=== PATIENT | female | born 1985 | race Caucasian/White ===

== ENCOUNTER → 2016-04-15 | Outpatient (CLI) | payer BC ==
[~2016-04-15] MED LIST: CYCL10TA9 PO; IBUP-1773 PO; LORA10TA76 PO; OXYC-471 PO; ROSU5TAB PO
--- NOTE | 2016-04-15 19:59 | Diagnostic Imaging Report ---
OB ultrasound. INDICATION: survey. FINDINGS: heart rate is 140 beats per minute. The placenta is posterior. No placenta previa. survey demonstrates visualization of the stomach, the heart, the bladder, two umbilical arteries, the cord insertion, the kidneys without hydronephrosis or cystic mass, unremarkable appearance of the spine, posterior fossa, and no ventriculomegaly. The growth parameters are all around 19 weeks and 6 days concordant with dating by LMP of 11/27/2015 which would correspond to 20 weeks and 0 days at this time. No first trimester ultrasound is available. IMPRESSION: Live single intrauterine with no definite abnormality in survey seen. Dictated by: Dictated on workstation # [id number]
== END ==
LOC: RAD 11:48
PROVIDERS: ATTEND Obstetrics & Gynecology
DX: Z34.92 Encounter for supervision of normal pregnancy, unspecified, second trimester (principal)
CPT/HCPCS: 76805

== ENCOUNTER 2016-08-29 20:00 | Inpatient (IN) | payer BC, OTHER ==
[2016-08-29] VITALS (7 sets, daily range): BP systolic 112–148; BP diastolic 63–81
[~2016-08-29] VITALS: Ht 162.6 cm; Wt 116.2 kg
--- OUTSIDE RECORDS SUMMARY | 2016-08-29 20:06 | XMS REPORT | Continuity of Care Document ---
Author Author Formerly [facility] Address Unknown Phone Unavailable Allergies Active Description Code Type Severity Reaction Onset Reported/Identified Relationship to Patient Clinical Status Yes hydrocodone Drug Allergy N/A N/A 05/24/2014 Yes Sulfa (Sulfonamide Antibiotics) Drug Allergy N/A N/A 05/24/2014 Yes No Known Drug Allergies [id number] Drug Allergy Unknown N/ A 07/12/2015 Yes hydrocodone [id number] Drug Allergy Unknown NAUSEA 08/23/2015 Yes shellfish derived [id number] Drug Allergy Unknown RASH 08/23/2015 Yes Sulfa (Sulfonamide Antibiotics) [id number] Drug Allergy Unknown RASH 08/23/2015 Yes hydrocodone [id number] Drug Allergy Mild NAUSEA 08/29/2015 Medications Problems Date Dx Coded Attending Type Code Diagnosis Diagnosed By 05/24/2014 JO ANN GARCIA APRN V72.31 GOODS LAYER EXAM, ROUTINE 05/24/2014 JO ANN GARCIA APRN V72.62 LAB SCREENING- GENERAL PHYSICAL 05/24/2014 JO ANN GARCIA APRN V76.10 BREAST CANCER SCREENING 05/24/2014 JO ANN GARCIA APRN V76.2 CERVICAL CANCER SCREENING (PAP SMEAR) 07/05/2015 Ot N83.9 NONINFLAMMATORY DISORD OF OVARY, FALLOP 07/05/2015 Ot N92.6 IRREGULAR MENSTRUATION, UNSPECIFIED 07/05/2015 Ot N83.9 NONINFLAMMATORY DISORD OF OVARY, FALLOP 07/05/2015 Ot N92.6 IRREGULAR MENSTRUATION, UNSPECIFIED 07/13/2015 STEVE ALVARADO Ot N94.9 UNSP COND ASSOC W FEMALE GENITAL ORGANS 07/19/2015 Ot N83.9 NONINFLAMMATORY DISORD OF OVARY, FALLOP 07/19/2015 Ot N92.6 IRREGULAR MENSTRUATION, UNSPECIFIED 07/28/2015 STEVE ALVARADO SDV PILOT/NAVIGATOR/DDS OPERATOR Ot N94.9 UNSP COND ASSOC W FEMALE GENITAL ORGANS 08/23/2015 YAJAIRA MONGE DO Ot D27.0 BENIGN NEOPLASM OF RIGHT OVARY 08/23/2015 YAJAIRA MONGE DO C Ot E28.2 POLYCYSTIC OVARIAN SYNDROME 08/23/2015 YAJAIRA MONGE DO Ot Z01.812 ENCOUNTER FOR PREPROCEDURAL LABORATORY E 08/23/2015 YAJAIRA MONGE DO C Ot Z11.2 ENCOUNTER FOR SCREENING FOR OTHER BACTER 08/24/2015 YAJAIRA MONGE DO Ot D27.0 BENIGN NEOPLASM OF RIGHT OVARY 08/24/2015 YAJAIRA MONGE DO C Ot E28.2 POLYCYSTIC OVARIAN SYNDROME 08/24/2015 YAJAIRA MONGE DO C Ot Z01.812 ENCOUNTER FOR PREPROCEDURAL LABORATORY E 08/24/2015 YAJAIRA MONGE DO Ot Z11.2 ENCOUNTER FOR SCREENING FOR OTHER BACTER 08/29/2015 Ot N83.9 NONINFLAMMATORY DISORD OF OVARY, FALLOP 08/29/2015 Ot N92.6 IRREGULAR MENSTRUATION, UNSPECIFIED 08/29/2015 STEVE ALVARADO SDV PILOT/NAVIGATOR/DDS OPERATOR Ot N94.9 UNSP COND ASSOC W FEMALE GENITAL ORGANS 08/29/2015 YAJAIRA MONGE DO C Ot D27.0 BENIGN NEOPLASM OF RIGHT OVARY 08/29/2015 YAJAIRA MONGE DO Ot E28.2 POLYCYSTIC OVARIAN SYNDROME 09/13/2015 Ot N83.9 NONINFLAMMATORY DISORD OF OVARY, FALLOP 09/13/2015 Ot N92.6 IRREGULAR MENSTRUATION, UNSPECIFIED 09/13/2015 STEVE ALVARADO SDV PILOT/NAVIGATOR/DDS OPERATOR Ot N94.9 UNSP COND ASSOC W FEMALE GENITAL ORGANS 12/12/2015 UABLDO MCNAIR APRN Ot K59.00 CONSTIPATION, UNSPECIFIED 12/12/2015 UBALDO MCNAIR APRN Ot M54.6 PAIN IN THORACIC SPINE 12/12/2015 UBALDO MCNAIR APRN Ot R10.11 RIGHT UPPER QUADRANT PAIN 12/12/2015 Ot N83.9 NONINFLAMMATORY DISORD OF OVARY, FALLOP 12/12/2015 Ot N92.6 IRREGULAR MENSTRUATION, UNSPECIFIED 12/12/2015 STEVE ALVARADO SDV PILOT/NAVIGATOR/DDS OPERATOR Ot N94.9 UNSP COND ASSOC W FEMALE GENITAL ORGANS 12/12/2015 UBALDO MCNAIR BACK MAKER Ot K59.00 CONSTIPATION, UNSPECIFIED 12/12/2015 UBALDO MCNAIR BACK MAKER Ot M54.6 PAIN IN THORACIC SPINE 12/12/2015 UBALDO MCNAIR Henry BACK MAKER Ot R10.11 RIGHT UPPER QUADRANT PAIN 12/12/2015 UBALDO MCNAIR BACK MAKER Ot R10.11 RIGHT UPPER QUADRANT PAIN 12/12/2015 UBALDO MCNAIR BACK MAKER Ot R19.4 CHANGE IN BOWEL HABIT 12/13/2015 Ot N83.9 NONINFLAMMATORY DISORD OF OVARY, FALLOP 12/13/2015 Ot N92.6 IRREGULAR MENSTRUATION, UNSPECIFIED 12/13/2015 MADL, STEVE L SDV PILOT/NAVIGATOR/DDS OPERATOR Ot N94.9 UNSP COND ASSOC W FEMALE GENITAL ORGANS 12/13/2015 UBALDO MCNAIR BACK MAKER Ot K59.00 CONSTIPATION, UNSPECIFIED 12/13/2015 UBALDO MCNAIR Henry BACK MAKER Ot M54.6 PAIN IN THORACIC SPINE 12/13/2015 UBALDO MCNAIR Henry BACK MAKER Ot R10.11 RIGHT UPPER QUADRANT PAIN 12/13/2015 UBALDO MCNAIR Henry BACK MAKER Ot R10.11 RIGHT UPPER QUADRANT PAIN 12/13/2015 UBALDO MCNAIR Henry BACK MAKER Ot R19.4 CHANGE IN BOWEL HABIT 12/13/2015 Ot N83.9 NONINFLAMMATORY DISORD OF OVARY, FALLOP 12/13/2015 Ot N92.6 IRREGULAR MENSTRUATION, UNSPECIFIED 12/13/2015 MADL, STEVE L SDV PILOT/NAVIGATOR/DDS OPERATOR Ot N94.9 UNSP COND ASSOC W FEMALE GENITAL ORGANS 12/13/2015 UBALDO MCNAIR Henry BACK MAKER Ot K59.00 CONSTIPATION, UNSPECIFIED 12/13/2015 UBALDO MCNAIR Henry BACK MAKER Ot M54.6 PAIN IN THORACIC SPINE 12/13/2015 UBALDO MCNAIR Henry BACK MAKER Ot R10.11 RIGHT UPPER QUADRANT PAIN 12/13/2015 XU UBALDO Figueroa BACK MAKER Ot R10.11 RIGHT UPPER QUADRANT PAIN 12/13/2015 JEROMY MCNAIRSheree Figueroa BACK MAKER Ot R19.4 CHANGE IN BOWEL HABIT 12/13/2015 UBALDO MCNAIR Henry BACK MAKER Ot K59.00 CONSTIPATION, UNSPECIFIED 12/13/2015 XU UBALDO Figueroa BACK MAKER Ot M54.6 PAIN IN THORACIC SPINE 12/13/2015 XU UBALDO Figueroa BACK MAKER Ot R10.11 RIGHT UPPER QUADRANT PAIN 12/14/2015 UBALDO MCNAIR BACK MAKER Ot R10.11 RIGHT UPPER QUADRANT PAIN 12/14/2015 UBALDO MCNAIR BACK MAKER Ot R19.4 CHANGE IN BOWEL HABIT 12/14/2015 UBALDO MCNAIR BACK MAKER Ot K59.00 CONSTIPATION, UNSPECIFIED 12/14/2015 UBALDO MCNAIR BACK MAKER Ot M54.6 PAIN IN THORACIC SPINE 12/14/2015 UBALDO MCNAIR BACK MAKER Ot R10.11 RIGHT UPPER QUADRANT PAIN 12/28/2015 UBALDO MCNAIR BACK MAKER Ot K59.00 CONSTIPATION, UNSPECIFIED 12/28/2015 UBALDO MCNAIR BACK MAKER Ot M54.6 PAIN IN THORACIC SPINE 12/28/2015 UBALDO MCNAIR BACK MAKER Ot R10.11 RIGHT UPPER QUADRANT PAIN 12/28/2015 UBALDO MCNAIR BACK MAKER Ot R10.11 RIGHT UPPER QUADRANT PAIN 12/28/2015 UBALDO MCNAIR BACK MAKER Ot R19.4 CHANGE IN BOWEL HABIT 04/16/2016 YAJAIRA MONGE DO, Ot Z34.92 ENCNTR FOR SUPRVSN OF NORMAL PREG, UNSP, 05/02/2016 YAJAIRA MONGE DO Ot Z34.92 ENCNTR FOR SUPRVSN OF NORMAL PREG, UNSP, Procedures Code Description [place] [address] PAP SMEAR 2014 Q0091 PAP SMEAR OBTAIN SMEAR 05/24/2014 Results Test Result Range Complete blood count (CBC) with automated white blood cell (WBC) differential - 12/09/15 11:10 Blood leukocytes automated count (number/volume) 7.1 10*3/ uL 4.3-11.0 Blood erythrocytes automated count (number/volume) 5.07 10*6 /uL 4.35-5.85 Venous blood hemoglobin measurement (mass/volume) 14.7 g/dL 11.5-16.0 Blood hematocrit (volume fraction) 42 % 35-52 Automated erythrocyte mean corpuscular volume 83 [foz_us] 80-99 Automated erythrocyte mean corpuscular hemoglobin (mass per erythrocyte) 29 pg 25-34 Automated erythrocyte mean corpuscular hemoglobin concentration measurement ( mass/volume) 35 g/dL 32-36 Automated erythrocyte distribution width ratio 11.4 % 10.0-14.5 Automated blood platelet count (count/volume) 286 10*3/uL 130-400 Automated blood platelet mean volume measurement 11.0 [foz_ us] 7.4-10.4 Automated blood neutrophils/100 leukocytes 66 % 42-75 Automated blood lymphocytes/100 leukocytes 23 % 12-44 Blood monocytes/100 leukocytes 9 % 0-12 Automated blood eosinophils/100 leukocytes 1 % 0-10 Automated blood basophils/100 leukocytes 1 % 0-10 Blood neutrophils automated count (number/volume) 4.7 10*3 1.8-7.8 Blood lymphocytes automated count (number/volume) 1.6 10*3 1.0-4.0 Blood monocytes automated count (number/volume) 0.6 10*3 0.0-1.0 Automated eosinophil count 0.1 10*3/uL 0.0-0.3 Automated blood basophil count (count/volume) 0.1 10*3/uL 0.0-0.1 Comprehensive metabolic panel - 12/09/15 11:10 Serum or plasma sodium measurement (moles/volume) 137 mmol/ L 135-145 Serum or plasma potassium measurement (moles/volume) 3.9 mmol/L 3.6-5.0 Serum or plasma chloride measurement (moles/volume) 104 mmol /L 98-107 Carbon dioxide 24 mmol/L 21-32 Serum or plasma anion gap determination (moles/volume) 9 mmol/L 5-14 Serum or plasma urea nitrogen measurement (mass/volume) 9 mg /dL 7-18 Serum or plasma creatinine measurement (mass/volume) 0.71 mg /dL 0.60-1.30 Serum or plasma urea nitrogen/creatinine mass ratio 13 NRG Serum or plasma creatinine measurement with calculation of estimated glomerular filtration rate > NRG Serum or plasma glucose measurement (mass/volume) 81 mg/dL 70-105 Serum or plasma calcium measurement (mass/volume) 9.4 mg/dL 8.5-10.1 Serum or plasma total bilirubin measurement (mass/volume) 2.3 mg/dL 0.1-1.0 Serum or plasma alkaline phosphatase measurement (enzymatic activity/volume) 94 U/L 40-136 Serum or plasma aspartate aminotransferase measurement (enzymatic activity/ volume) 21 U/L 5-34 Serum or plasma alanine aminotransferase measurement (enzymatic activity/volume ) 20 U/L 0-55 Serum or plasma protein measurement (mass/volume) 7.2 g/dL 6.4-8.2 Serum or plasma albumin measurement (mass/volume) 4.4 g/dL 3.2-4.5 Serum or plasma amylase measurement (enzymatic activity/volume) - 12/09/15 11: 10 Serum or plasma amylase measurement (enzymatic activity/volume) 28 U/L 25-125 Lipase - 12/09/15 11:10 Lipase 16 U/L 8-78 Serum or plasma C reactive protein measurement (mass/volume) - 12/09/15 11:10 Serum or plasma C reactive protein measurement (mass/volume) 0.47 mg/dL 0.00-0.50 Encounters ACCT No. Visit Date/Time Discharge Status Pt. Type Provider Facility Loc./Unit Complaint [id number] 05/24/2014 09:19:00 05/24/2014 23: 59:59 [facility] Outpatient JO ANN GARCIA APRN
--- OUTSIDE RECORDS SUMMARY | 2016-08-29 20:06 | XMS REPORT ---
Author Author MYRON SANCHEZ [facility] eClinical[employer] Address Unknown Phone Unavailable Care Team Providers Care Lathing Supervisor Name Role Phone MYRON SANCHEZ CP Unavailable Allergies, Adverse Reactions, Alerts Substance Reaction Event Type N.K.D.A. 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 Medications Medication Code System Code Instructions Start Date End Date Status Dosage Cyclobenzaprine HCl [facility] [address]-68 10 mg Orally Three times a day May 25, 2015 1 tablet Claritin [facility] [address]-47 10 MG Orally Once a day 1 tablet Procedures Procedure Coding System Code Date Office Visit, Est Pt., Level 3 CPT-4 12648 May 25, 2015 Vital Signs Date/Time: May 25, 2015 Temperature 98.0 F Weight 214 lbs Height 64 in BMI 36.73 Index Blood Pressure Diastolic 62 mmHg Blood Pressure Systolic 128 mmHg Cardiac Monitoring Heart Rate 68 bpm Results No Known Results Summary Purpose eClinicalWorks Submission
--- OUTSIDE RECORDS SUMMARY | 2016-08-29 20:06 | XMS REPORT ---
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
--- OUTSIDE RECORDS SUMMARY | 2016-08-29 20:06 | XMS REPORT ---
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
--- OUTSIDE RECORDS SUMMARY | 2016-08-29 20:06 | XMS REPORT ---
Author Author STEVE ALVARADO [facility] eClinical[employer] Address Unknown Phone Unavailable Care Team Providers Care Pickling Solution Maker Name Role Phone STEVE ALVARADO CP Unavailable Allergies, Adverse Reactions, Alerts Substance Reaction Event Type SulfADIAZINE turned purple Drug Allergy Hydrocodone Bitartrate nauseated Drug Allergy Problems Problem Type Condition Code Onset Dates Condition Status Problem Hirsutism L68.0 Active Assessment Irregular menses N92.6 Active Problem Irregular menses N92.6 Active Assessment Hirsutism L68.0 Active Medications Medication Code System Code Instructions Start Date End Date Status Dosage Cyclobenzaprine HCl [facility] [address]-84 10 mg Orally Three times a day May 25, 2015 1 tablet Claritin [facility] [address]-46 10 MG Orally Once a day 1 tablet Procedures Procedure Coding System Code Date Office Visit, Est Pt., Level 4 CPT-4 38319 June 08, 2015 Vital Signs Date/Time: June 08, 2015 Temperature 98.5 F Weight 215.9 lbs Height 64 in BMI 37.06 Index Blood Pressure Diastolic 84 mmHg Blood Pressure Systolic 122 mmHg Cardiac Monitoring Heart Rate 74 bpm Results No Known Results Summary Purpose eClinicalWorks Submission
--- OUTSIDE RECORDS SUMMARY | 2016-08-29 20:06 | XMS REPORT ---
Author Author STEVE ALVARADO Organization e[employer] Address Unknown Phone Unavailable Care Team Providers Care Scaffold Worker Name Role Phone STEVE ALVARADO CP Unavailable Allergies No Known Allergies Problems Problem Type Condition Code Onset Dates Condition Status Problem Hirsutism L68.0 Active Assessment Irregular menses N92.6 Active Problem Irregular menses N92.6 Active Medications No Known Medications Procedures Procedure Coding System Code Date ASSAY OF PROLACTIN CPT-4 33523 June 09, 2015 ASSAY OF TOTAL TESTOSTERONE CPT-4 38157 June 09, 2015 GONADOTROPIN (LH) CPT-4 32445 June 09, 2015 VENIPUNCT, ROUTINE* CPT-4 39186 June 09, 2015 GONADOTROPIN (FSH) CPT-4 77957 June 09, 2015 ASSAY THYROID STIM HORMONE CPT-4 49196 June 09, 2015 LIPID PANEL CPT-4 62236 June 09, 2015 ASSAY OF INSULIN CPT-4 56275 June 09, 2015 Results Name Result Date Reference Range Unit Abnormality Flag ROUTINE VENIPUNCTURE Summary Purpose eClinicalWorks Submission
--- OUTSIDE RECORDS SUMMARY | 2016-08-29 20:06 | XMS REPORT ---
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 939135781 Problem Mixed hyperlipidemia E78.2 Active 220875886 Problem Hirsutism L68.0 Active 600521044 Problem Adnexal mass N94.9 Active 054115961 Problem PCOS (polycystic ovarian syndrome) E28.2 Active 31598067 Problem Irregular menses N92.6 Active 32793369 ALLERGIES Unknown Allergies SOCIAL HISTORY No smoking Hx information available PLAN OF CARE VITAL SIGNS MEDICATIONS Unknown Medications RESULTS Name Result Date Reference Range LIPID PANEL 2015-10-25 Cholesterol, Total 163 100-199 Triglycerides 64 0-149 HDL Cholesterol 40 >39 VLDL Cholesterol Alexis 13 5-40 LDL Cholesterol Calc 110 0-99 Comment: PROCEDURES Procedure Date Ordered Related Diagnosis Body Site ROUTINE VENIPUNCTURE 2015-10-25 N/A LIPID PANEL Oct 25, 2015 VENIPUNCT, ROUTINE* Oct 25, 2015 IMMUNIZATIONS No Known Immunizations
[2016-08-29] MEDS ORDERED: MISOPROSTOL 100 MCG (CYTOTEC) TAB PO ONE (20:30)
[2016-08-29] MEDS ORDERED: MINERAL OIL CONCENTRATE 99.9% 15 ML UDC TOP PRN (20:30)
[2016-08-29] MEDS ORDERED: NS IV 1000 ML 1,000 ML IV ONE (20:30)
[2016-08-29 21:28] LABS: BASOPHILS % (AUTO) 0 % (0-10); EOSINOPHILS # (AUTO) 0.1 10^3/uL (0.0-0.3); EOSINOPHILS % (AUTO) 1 % (0-10); LYMPHOCYTES # (AUTO) 2.3 X 10^3 (1.0-4.0); LYMPHOCYTES % (AUTO) 15 % (12-44); MEAN CORPUSCULAR HEMOGLOBIN 28 PG (25-34); MEAN CORPUSCULAR HGB CONC 34 G/DL (32-36); MEAN CORPUSCULAR VOLUME 82 FL (80-99); MONOCYTES # (AUTO) 1.2 X 10^3 (0.0-1.0); MONOCYTES % (AUTO) 8 % (0-12); NEUTROPHILS # (AUTO) 11.5 X 10^3 (1.8-7.8); NEUTROPHILS % (AUTO) 76 % (42-75); PLATELET COUNT 222 10^3/uL (130-400); RED BLOOD COUNT 4.79 10^6/uL (4.35-5.85); RED CELL DISTRIBUTION WIDTH 13.3 % (10.0-14.5); WHITE BLOOD COUNT 15.2 10^3/uL (4.3-11.0)
[2016-08-29 21:50] LABS: BAND NEUTROPHILS 2 %; BASOPHILS % (MANUAL) 0 %; EOSINOPHILS % (MANUAL) 2 %; LYMPHOCYTES % (MANUAL) 13 %; NEUTROPHILS % (MANUAL) 81 %
[2016-08-29] MEDS: CATHETER FLUSH 10 ML SYR IV SCH (22:11)
[2016-08-29] MEDS: D5 LR IV SOLUTION 1,000 ML IV SCH (22:14)
[2016-08-29] MEDS ORDERED: OMEP20TA33 PO (22:39)
[2016-08-29] MEDS ORDERED: MAGN250T2 PO (22:39)
[2016-08-29] MEDS ORDERED: PREN-142 PO (22:39)
[2016-08-29] MEDS ORDERED: ZOLPIDEM 5 MG (AMBIEN) TAB PO PRN (23:15)
[2016-08-30] VITALS (60 sets, daily range): BP systolic 104–158; BP diastolic 56–95
[2016-08-30] MEDS: MISOPROSTOL 100 MCG (CYTOTEC) TAB PO SCH ×2 (01:10→05:22)
[2016-08-30] MEDS ORDERED: morphine INJ 10 MG/ML 1ML (SYR OR VIAL) IVP ONE ×3 (05:15→22:30)
[2016-08-30] MEDS: CATHETER FLUSH 10 ML SYR IV SCH (05:52)
[2016-08-30] MEDS: D5 LR IV SOLUTION 1,000 ML IV SCH (06:16)
[2016-08-30] MEDS ORDERED: PROMETHAZINE INJ 25 MG/ML (PHENERGAN) AMP IVP ONE ×2 (08:15→23:30)
[2016-08-30] MEDS ORDERED: OXYTOCIN/NORMAL SALINE 500 ML IV ONE (11:30)
[2016-08-30] MEDS ORDERED: OXYTOCIN/NORMAL SALINE 500 ML IV SCH ×2 (11:45→19:23)
[2016-08-30] MEDS ORDERED: SUFENTA 0.6MCG/ML BUPIVA 0.125 100 ML ONE (12:50)
[2016-08-30] MEDS ORDERED: fentaNYL INJECTION 100 MCG/2 ML AMP ONE (12:54)
[2016-08-30] MEDS ORDERED: LIDOCAINE PF 2% 5 ML (XYLOCAINE) VIAL ONE (12:54)
[2016-08-30] MEDS ORDERED: BUPIVACAINE 0.25% 30 ML (SENSORCAINE) VIAL ONE (12:54)
[2016-08-30] MEDS ORDERED: LIDOCAINE/EPI 1%-1:200,000 (XYLOCAINE) 30 ML VIAL ONE (17:24)
[2016-08-30] MEDS ORDERED: LACTATED RINGERS 1,000 ML IV ONE ×2 (17:42)
[2016-08-30] MEDS ORDERED: EPIDURAL (SUFENTA 0.6MCG/ML BUPIVA 0.125%) 100 ML BAG EPI PRN (17:45)
[2016-08-30] MEDS ORDERED: NALOXONE 0.4 MG/ML 1 ML (NARCAN) VIAL IV PRN (17:45)
[2016-08-30] MEDS ORDERED: ONDANSETRON 4 MG/2 ML (SDV) Z0FRAN IV PRN (17:45)
--- NOTE | 2016-08-30 19:27 | OB Labor & Delivery Record ---
Vag Delivery Note Vag Delivery Note Date of Delivery: 08/30/16 Preoperative Diagnosis: Jessica Farmer is a 31 /Para 2 /0 , Gestational Age 39 weeks with gestational hypertension Postoperative Diagnosis: Same Surgeon: YAJAIRA MONGE Anesthesia: epidural Delivery Type: vaginal Findings: Viable female infant, apgars 9/9, weight 7#10 oz Lacerations: 2nd degree laceration with capsulotomy Intact placenta with 3 vessel cord. Nuchal cord x 3, reduced and delivered through, no body cord or shoulder dystocia Estimated Blood Loss: 150 ml Complications: None Condition: Stable Description of Procedure: The patient is a 31 /Para 2 /0 ,Gestational Age 39 weeks with gestational hypertension who presented for induction of labor. She was admitted and informed consent was obtained. Her labor course was remarkable for misoprostol cervical ripening, ROM and Pitocin augmentation. She progressed to complete dilatation and began to push. She was then set up for delivery. The infant's head was delivered atraumatically in the OA position. The shoulders and remainder of the infant's body were then delivered without difficulty. Upon delivery, the head was held below the level of the perineum and the mouth and nares were bulb suctioned. The cord was doubly clamped and cut and the infant was handed off to the pediatric staff. An intact placenta with 3-vessel cord delivered via Lamar and there was found to be minimal bleeding.~ Vigorous fundal massage was performed and the fundus was found to be firm. IV oxytocin was given. Examination of the vagina and perineum revealed a 2nd degree laceration with partial capsulotomy repaired in the usual fashion with 3-0 Vicryl suture. Following the repair, sponge, instrument and needle counts were correct. Mom and baby were both in stable condition in the labor suite. Vitals - Labs Vital Signs - I&O Vital Signs Date Time Temp Pulse Resp B/P (MAP) Pulse Ox O2 Delivery O2 Flow Rate FiO2 08/30/16 14:55 97 18 111/62 99 Room Air 08/30/16 14:45 104 18 122/66 99 Room Air 08/30/16 14:35 99 20 123/66 99 Room Air 08/30/16 14:25 96 20 121/76 99 Room Air 08/30/16 14:15 99 20 127/63 98 Room Air 08/30/16 14:05 102 20 126/73 99 Room Air 08/30/16 13:55 102 20 124/73 99 Room Air 08/30/16 13:45 123 18 127/65 98 Room Air 08/30/16 13:30 108 18 114/58 98 Room Air 08/30/16 13:25 117 22 114/58 98 Room Air 08/30/16 13:15 100 22 132/79 99 Room Air 08/30/16 13:10 100 20 128/76 100 Room Air 08/30/16 12:40 95 22 132/70 Room Air 08/30/16 12:25 99 20 134/71 Room Air 08/30/16 12:10 97.2 100 20 132/78 Room Air 08/30/16 11:55 94 20 120/68 Room Air 08/30/16 11:15 102 20 135/75 Room Air 08/30/16 10:45 96 20 132/75 Room Air 08/30/16 10:20 100 20 122/76 Room Air 08/30/16 10:00 102 18 119/81 Room Air 08/30/16 09:15 96 18 125/63 Room Air 08/30/16 08:50 99 18 111/61 Room Air 08/30/16 08:15 90 18 132/81 Room Air 08/30/16 08:00 97.0 103 20 121/75 Room Air 08/30/16 03:57 97.8 102 18 135/63 Room Air 08/30/16 02:04 98.1 94 18 140/73 Room Air 08/29/16 23:47 96 18 131/63 Room Air 08/29/16 23:17 100 18 122/81 Room Air 08/29/16 22:50 108 18 112/72 Room Air 08/29/16 22:17 98.0 106 18 124/73 Room Air 08/29/16 21:50 114 18 148/72 Room Air 08/29/16 21:18 115 18 136/75 Room Air 08/29/16 20:31 98.0 121 18 127/76 Room Air I & O 08/30/16 07:00 Intake Total 3540 ml Balance 3540 ml Labs Laboratory Tests 08/29/16 21:00: White Blood Count 15.2H, Red Blood Count 4.79, Hemoglobin 13.4, Hematocrit 39, Mean Corpuscular Volume 82, Mean Corpuscular Hemoglobin 28, Mean Corpuscular Hemoglobin Concent 34, Red Cell Distribution Width 13.3, Platelet Count 222, Mean Platelet Volume 12.0H, Neutrophils (%) (Auto) 76H, Lymphocytes (%) (Auto) 15, Monocytes (%) (Auto) 8, Eosinophils (%) (Auto) 1, Basophils (%) (Auto) 0, Neutrophils # (Auto) 11.5H, Lymphocytes # (Auto) 2.3, Monocytes # (Auto) 1.2H, Eosinophils # (Auto) 0.1, Basophils # (Auto) 0.0, Neutrophils % (Manual) 81, Lymphocytes % (Manual) 13, Monocytes % (Manual) 2, Eosinophils % (Manual) 2, Basophils % (Manual) 0, Band Neutrophils 2, Blood Morphology Comment NORMAL YAJAIRA MONGE DO Aug 30, 2016 19:27
[2016-08-30] MEDS ORDERED: TETANUS,DIPTH,PERTUSS P/F (BOOSTRIX) 0.5 ML VIAL IM ONE (19:30)
[2016-08-30] MEDS ORDERED: BENZOCAINE/MENTHOL (DERMOPLAST) 56 ML CAN TP PRN (19:30)
[2016-08-30] MEDS ORDERED: MEASLES,MUMPS,RUBELLA 1 EA INJ SQ ONE (19:30)
[2016-08-30] MEDS ORDERED: DIBUCAINE (NUPERCAINAL) 1% OINT 30 GM TOP PRN (19:30)
[2016-08-30] MEDS ORDERED: WITCH HAZEL(TUCKS) 40 EA JAR TOP PRN (19:30)
[2016-08-30] MEDS ORDERED: HYDROcodone/APAP 5 MG/325 MG (LORTAB) TAB PO PRN (19:30)
[2016-08-30] MEDS: IBUPROFEN 600 MG (MOTRIN) TAB PO SCH (19:37)
[2016-08-30] MEDS ORDERED: MISOPROSTOL 200 MCG (CYTOTEC) TABLET ONE (21:46)
[2016-08-30] MEDS ORDERED: KETOROLAC 30 MG/ML VIAL ONE ×2 (21:46)
[2016-08-30] MEDS ORDERED: morphine INJ 10 MG/ML 1ML (SYR OR VIAL) ONE (22:08)
[2016-08-30] MEDS ORDERED: MISOPROSTOL 200 MCG (CYTOTEC) TABLET PO ONE (22:30)
[2016-08-30] MEDS ORDERED: KETOROLAC 30 MG/ML VIAL IVP ONE (22:30)
[2016-08-30] MEDS ORDERED: MISOPROSTOL 200 MCG (CYTOTEC) TABLET PR ONE (22:45)
[2016-08-31 00:25] VITALS: BP 139/89
[2016-08-31 03:45] VITALS: BP 155/95
[2016-08-31] MEDS: IBUPROFEN 600 MG (MOTRIN) TAB PO SCH ×4 (04:05→20:11)
[2016-08-31 05:54] LABS: BASOPHILS % (AUTO) 0 % (0-10); EOSINOPHILS % (AUTO) 0 % (0-10); LYMPHOCYTES # (AUTO) 2.2 X 10^3 (1.0-4.0); LYMPHOCYTES % (AUTO) 10 % (12-44); MEAN CORPUSCULAR HEMOGLOBIN 28 PG (25-34); MEAN CORPUSCULAR HGB CONC 34 G/DL (32-36); MEAN CORPUSCULAR VOLUME 83 FL (80-99); MEAN PLATELET VOLUME 11.9 FL (7.4-10.4); MONOCYTES # (AUTO) 1.9 X 10^3 (0.0-1.0); MONOCYTES % (AUTO) 8 % (0-12); NEUTROPHILS # (AUTO) 18.9 X 10^3 (1.8-7.8); NEUTROPHILS % (AUTO) 82 % (42-75); PLATELET COUNT 193 10^3/uL (130-400); RED BLOOD COUNT 3.64 10^6/uL (4.35-5.85)
--- NOTE | 2016-08-31 08:49 | Postpartum Progress Note ---
Note Note Day # 1 s/p Subjective: Patient is without complaints. Ambulating, voiding. Tolerating a regular diet without nausea or vomiting. Normal lochia. Pain is well controlled with oral pain medications. breast feeding. Had rectal pressure last night and pain control issues. Also passed large blood clot and given misoprostol. States she feels much better today. Labile blood pressures last night and today. No headache or blurred vision. Bleeding normal lochia today. no nausea/vomiting. Breast feeding but didn't feel well last night so she has not breast fed. Low grade temperature. Objective: Tmax - 100.1 T c - 99.3 P 110-140 R 20 BP 145-154/95-100 Physical Exam: General - Alert and oriented, no apparent distress Abdomen - Soft, appropriately tender to palpation, non-distended, fundus firm at umbilicus Extremities - no edema, negative Lora's bilaterally Assessment: 1. post- day # 1, status post spontaneous vaginal delivery. Recovering well, hemodynamically stable 2. Acute blood loss anemia 3. tachycardia 4. Borderline blood pressures Plan: Routine care. Encourage breast feeding. Encourage ambulation. Ferrous sulfate supplementation. Will check PIH labs and straight cath UA Addendum - Laboratory Tests Test 08/31/16 09:20 Range/Units Urine Color YELLOW Urine Clarity SLIGHTLY CLOUDY Urine pH 6 5-9 Urine Specific Clune 1.015 L 1.016-1.022 Urine Protein 2+ H NEGATIVE Urine Glucose (UA) NEGATIVE NEGATIVE Urine Ketones 2+ H NEGATIVE Urine Nitrite NEGATIVE NEGATIVE Urine Bilirubin NEGATIVE NEGATIVE Urine Urobilinogen NORMAL NORMAL MG/DL Urine Leukocyte Esterase 3+ H NEGATIVE Urine RBC (Auto) 5+ H NEGATIVE Urine RBC 5-10 H /HPF Urine WBC 10-25 H /HPF Urine Squamous Epithelial Cells RARE /HPF Urine Crystals NONE /LPF Urine Bacteria LARGE H /HPF Urine Casts NONE /LPF Urine Mucus NEGATIVE /LPF Urine Culture Indicated NO Laboratory Tests 08/31/16 05:39: White Blood Count 23.0H, Red Blood Count 3.64L, Hemoglobin 10.3#L, Hematocrit 30L, Mean Corpuscular Volume 83, Mean Corpuscular Hemoglobin 28, Mean Corpuscular Hemoglobin Concent 34, Red Cell Distribution Width 13.0, Platelet Count 193, Mean Platelet Volume 11.9H, Neutrophils (%) (Auto) 82H, Lymphocytes ( %) (Auto) 10L, Monocytes (%) (Auto) 8, Eosinophils (%) (Auto) 0, Basophils (%) ( Auto) 0, Neutrophils # (Auto) 18.9H, Lymphocytes # (Auto) 2.2, Monocytes # (Auto ) 1.9H, Eosinophils # (Auto) 0.0, Basophils # (Auto) 0.0, Sodium Level 134L, Potassium Level 3.9, Chloride Level 106, Carbon Dioxide Level 21, Anion Gap 7, Blood Urea Nitrogen 5L, Creatinine 0.57L, Estimat Glomerular Filtration Rate > 60, BUN/Creatinine Ratio 9, Glucose Level 104, Uric Acid 4.7, Calcium Level 8.0L , Magnesium Level 1.4L, Total Bilirubin 0.9, Aspartate Amino Transf (AST/SGOT) 32, Alanine Aminotransferase (ALT/SGPT) 13, Alkaline Phosphatase 130, Lactate Dehydrogenase 280H, Total Protein 4.8L, Albumin 2.4L 08/31/16 09:20: Urine Color YELLOW, Urine Clarity SLIGHTLY CLOUDY, Urine pH 6, Urine Specific Clune 1.015L, Urine Protein 2+H, Urine Glucose (UA) NEGATIVE, Urine Ketones 2+ H, Urine Nitrite NEGATIVE, Urine Bilirubin NEGATIVE, Urine Urobilinogen NORMAL, Urine Leukocyte Esterase 3+H, Urine RBC (Auto) 5+H, Urine RBC 5-10H, Urine WBC 10-25H, Urine Squamous Epithelial Cells RARE, Urine Crystals NONE, Urine Bacteria LARGEH, Urine Casts NONE, Urine Mucus NEGATIVE, Urine Culture Indicated NO PIH labs wnl, but UA consistent with UTI. Rocephin started. Will send home with Keflex until sens available Vitals - Labs Vital Signs - I&O Vital Signs Date Time Temp Pulse Resp B/P (MAP) Pulse Ox O2 Delivery O2 Flow Rate FiO2 08/31/16 03:45 99.9 125 20 155/95 98 Room Air 08/31/16 01:02 99.7 08/31/16 00:25 100.1 103 19 139/89 98 Room Air 08/30/16 22:25 108 20 137/83 08/30/16 21:15 108 24 152/93 100 Room Air 08/30/16 20:50 98.5 114 17 148/77 95 Room Air 08/30/16 20:15 99.0 122 20 133/61 Room Air 08/30/16 20:00 99.0 133 20 110/58 Room Air 08/30/16 19:45 98.8 122 20 104/69 Room Air 08/30/16 19:30 98.3 144 20 111/56 Room Air 08/30/16 19:15 98.6 121 20 121/58 Room Air 08/30/16 19:15 98.8 116 20 117/58 Room Air 08/30/16 19:00 98.8 113 20 126/64 Room Air 08/30/16 18:45 144 20 158/83 Room Air 08/30/16 18:35 139 20 138/61 Room Air 08/30/16 18:25 113 20 146/67 Room Air 08/30/16 18:10 117 20 139/76 Room Air 08/30/16 18:00 112 20 133/73 Room Air 08/30/16 17:48 108 20 152/67 Room Air 08/30/16 17:41 117 20 152/70 Room Air 08/30/16 17:36 111 20 133/73 Room Air 08/30/16 17:33 123 20 122/66 Room Air 08/30/16 17:25 109 20 134/63 Room Air 08/30/16 17:20 112 20 147/65 Room Air 08/30/16 17:15 98.8 102 20 130/75 Room Air 08/30/16 17:00 106 20 131/69 Room Air 08/30/16 16:50 103 20 131/95 Room Air 08/30/16 16:45 107 20 133/76 Room Air 08/30/16 16:40 101 20 133/68 Room Air 08/30/16 16:30 112 20 133/78 Room Air 08/30/16 16:20 103 20 132/76 Room Air 08/30/16 16:12 106 18 134/74 99 Room Air 08/30/16 16:05 101 18 122/68 99 Room Air 08/30/16 15:55 102 18 131/80 99 Room Air 08/30/16 15:35 96 16 117/75 99 Room Air 08/30/16 15:25 91 16 125/79 99 Room Air 08/30/16 15:15 97 18 114/68 100 Room Air 08/30/16 15:05 97 18 123/66 100 Room Air 08/30/16 14:55 97 18 111/62 99 Room Air 08/30/16 14:45 104 18 122/66 99 Room Air 08/30/16 14:35 99 20 123/66 99 Room Air 08/30/16 14:25 96 20 121/76 99 Room Air 08/30/16 14:15 99 20 127/63 98 Room Air 08/30/16 14:05 102 20 126/73 99 Room Air 08/30/16 13:55 102 20 124/73 99 Room Air 08/30/16 13:45 123 18 127/65 98 Room Air 08/30/16 13:30 108 18 114/58 98 Room Air 08/30/16 13:25 117 22 114/58 98 Room Air 08/30/16 13:15 100 22 132/79 99 Room Air 08/30/16 13:10 100 20 128/76 100 Room Air 08/30/16 12:40 95 22 132/70 Room Air 08/30/16 12:25 99 20 134/71 Room Air 08/30/16 12:10 97.2 100 20 132/78 Room Air 08/30/16 11:55 94 20 120/68 Room Air 08/30/16 11:15 102 20 135/75 Room Air 08/30/16 10:45 96 20 132/75 Room Air 08/30/16 10:20 100 20 122/76 Room Air 08/30/16 10:00 102 18 119/81 Room Air 08/30/16 09:15 96 18 125/63 Room Air 08/30/16 08:50 99 18 111/61 Room Air I & O 08/31/16 07:00 Intake Total 400 ml Output Total 250 ml Balance 150 ml Labs Laboratory Tests 08/31/16 05:39: White Blood Count 23.0H, Red Blood Count 3.64L, Hemoglobin 10.3#L, Hematocrit 30L, Mean Corpuscular Volume 83, Mean Corpuscular Hemoglobin 28, Mean Corpuscular Hemoglobin Concent 34, Red Cell Distribution Width 13.0, Platelet Count 193, Mean Platelet Volume 11.9H, Neutrophils (%) (Auto) 82H, Lymphocytes ( %) (Auto) 10L, Monocytes (%) (Auto) 8, Eosinophils (%) (Auto) 0, Basophils (%) ( Auto) 0, Neutrophils # (Auto) 18.9H, Lymphocytes # (Auto) 2.2, Monocytes # (Auto ) 1.9H, Eosinophils # (Auto) 0.0, Basophils # (Auto) 0.0 YAJAIRA MONGE DO Aug 31, 2016 08:49
[2016-08-31 09:00] VITALS: BP 146/96
[2016-08-31 09:11] LABS: ALANINE AMINOTRANSFERASE 13 U/L (0-55); ALBUMIN 2.4 GM/DL (3.2-4.5); ANION GAP 7 MMOL/L (5-14); ASPARTATE AMINO TRANSFERASE 32 U/L (5-34); BILIRUBIN,TOTAL 0.9 MG/DL (0.1-1.0); BLOOD UREA NITROGEN 5 MG/DL (7-18); BUN/CREATININE RATIO 9; CARBON DIOXIDE 21 MMOL/L (21-32); CHLORIDE 106 MMOL/L (98-107); CREATININE SERUM 0.57 MG/DL (0.60-1.30); GFR ESTIMATED > 60; GLUCOSE 104 MG/DL (70-105); LACTATE DEHYDROGENASE 280 U/L (125-220); MAGNESIUM 1.4 MG/DL (1.8-2.4); POTASSIUM 3.9 MMOL/L (3.6-5.0); SODIUM 134 MMOL/L (135-145); TOTAL PROTEIN 4.8 GM/DL (6.4-8.2); URIC ACID 4.7 MG/DL (2.6-7.2)
[2016-08-31] MEDS ORDERED: IBUP-1773 PO (09:13)
[2016-08-31] MEDS ORDERED: HYDR-3812 PO (09:13)
[2016-08-31] MEDS ORDERED: FERR-74 PO (09:13)
[2016-08-31] MEDS: DOCUSATE SODIUM 100 MG (COLACE) CAP PO SCH ×2 (09:53→20:10)
[2016-08-31] MEDS: PRENATAL VITAMIN 1 EA TAB PO SCH (09:55)
[2016-08-31] MEDS: FERROUS SULF 325 MG (IRON) TAB PO SCH (09:56)
[2016-08-31 09:57] LABS: BILIRUBIN,URINE NEGATIVE (NEGATIVE); KETONES,URINE 2+ (NEGATIVE); LEUKOCYTE ESTERASE ,URINE 3+ (NEGATIVE); NITRITE,URINE NEGATIVE (NEGATIVE); PH,URINE 6 (5-9); PROTEIN,URINE 2+ (NEGATIVE); UROBILINOGEN,URINE NORMAL (NORMAL)
[2016-08-31 10:24] LABS: SQUAMOUS EPITHELIAL CELL,UR RARE /HPF
[2016-08-31] MEDS ORDERED: cefTRIAXone 1 GM (ROCEPHIN) VIAL ONE (11:24)
--- NOTE | 2016-08-31 12:10 | Anesthesia-Regional Post-Op ---
Regional Patient Condition Mental Status: Alert, Oriented x3 Circulation: Same as Pre-Op Headache: Absent Sensation: Full Recovery Motor Block: Absent Post Op Complications Complications None Follow Up Care/Instructions Patient Instructions None needed. Anesthesia/Patient Condition Patient is doing well, no complaints, stable vital signs, no apparent adverse anesthesia problems. No complications reported per nursing. OLIVER MARRERO CRNA Aug 31, 2016 12:10
[2016-08-31 14:15] VITALS: BP 148/92
[2016-08-31] MEDS: MAGNESIUM OXIDE (MAG-OX)400 MG TAB PO SCH ×2 (14:19→20:10)
[2016-08-31 20:00] VITALS: BP 140/107
[2016-09-01] MEDS: IBUPROFEN 600 MG (MOTRIN) TAB PO SCH ×4 (02:15→21:30)
[2016-09-01 05:30] VITALS: BP 132/92
[2016-09-01] MEDS: MAGNESIUM OXIDE (MAG-OX)400 MG TAB PO SCH ×3 (08:10→21:21)
[2016-09-01] MEDS: FERROUS SULF 325 MG (IRON) TAB PO SCH (08:10)
[2016-09-01] MEDS: PRENATAL VITAMIN 1 EA TAB PO SCH (08:10)
[2016-09-01] MEDS: DOCUSATE SODIUM 100 MG (COLACE) CAP PO SCH ×2 (08:10→21:21)
[2016-09-01] MEDS ORDERED: CEPH-507 PO ×2 (08:16→09:20)
--- NOTE | 2016-09-01 08:18 | Discharge Inst-Women's Service ---
Discharge Inst-Women's Serv Depart Medication/Instructions New, Converted or Re-Newed RX: Other (RX on chart but please call antibiotic Rx to pharmacy of choice.) Final Diagnosis UTI hypomagnesemia gestational hypertension Vaginal delivery Epidural 2nd degree laceration Consults/Follow Up Additional Follow Up: Yes (1 week for BP check/ see Nadia. 6 weeks with [place] for PP exam) Activity Activity: Activity as Tolerated Driving Instructions: You May Drive NO SMOKING: NO SMOKING Nothing Inside Vagina: No Douching, No [place]ckard, No Tampons Diet Discharge Diet: No Restrictions Symptoms to Report to : Swelling Increased, Bleeding Excessive, Pain Increased, Fever Over 101 Degrees F, Vaginal Bleeding Increase, Vaginal Discharge Foul For Any Problems or Questions: Contact Your Physician YAJAIRA MONGE DO Sep 01, 2016 08:18
[2016-09-01 08:30] VITALS: BP 136/72
[2016-09-01 09:01] LABS: BASOPHILS # (AUTO) 0.1 10^3/uL (0.0-0.1); BASOPHILS % (AUTO) 0 % (0-10); EOSINOPHILS # (AUTO) 0.2 10^3/uL (0.0-0.3); EOSINOPHILS % (AUTO) 1 % (0-10); LYMPHOCYTES # (AUTO) 2.5 X 10^3 (1.0-4.0); LYMPHOCYTES % (AUTO) 15 % (12-44); MEAN CORPUSCULAR HEMOGLOBIN 28 PG (25-34); MEAN CORPUSCULAR HGB CONC 34 G/DL (32-36); MEAN CORPUSCULAR VOLUME 83 FL (80-99); MEAN PLATELET VOLUME 11.7 FL (7.4-10.4); MONOCYTES # (AUTO) 1.2 X 10^3 (0.0-1.0); MONOCYTES % (AUTO) 7 % (0-12); NEUTROPHILS # (AUTO) 12.3 X 10^3 (1.8-7.8); NEUTROPHILS % (AUTO) 76 % (42-75); PLATELET COUNT 236 10^3/uL (130-400); RED BLOOD COUNT 3.39 10^6/uL (4.35-5.85); RED CELL DISTRIBUTION WIDTH 13.2 % (10.0-14.5); WHITE BLOOD COUNT 16.3 10^3/uL (4.3-11.0)
--- NOTE | 2016-09-01 09:12 | Progress Note-Standard ---
Standard Progress Note Progress Notes/Assess & Plan Date Seen by Provider: Sep 01, 2016 Time Seen by Provider: 09:11 Progress/Assessment & Plan this patient is without complaint. She is ambulating, voiding, tolerating by mouth, denies chest pain, denies shortness of breath, denies nausea vomiting, denies headache. Patient is requesting discharge home. Vital Signs Date Time Temp Pulse Resp B/P (MAP) Pulse Ox O2 Delivery O2 Flow Rate FiO2 09/01/16 08:30 96.7 92 18 136/72 98 Room Air 09/01/16 05:30 96.0 111 17 132/92 100 Room Air 08/31/16 20:00 97.4 109 18 140/107 100 Room Air 08/31/16 14:15 98.9 125 18 148/92 Room Air vital signs are stable. Patient is afebrile. The abdomen is benign. The fundus is firm below the umbilicus nontender. Extremities show no clubbing cyanosis. There is no Homans sign. There is some fairly notable pretibial pitting edema that is normal. Assessment and plan post day number 2 status post term spontaneous vaginal delivery doing well. Plan is for discharge home with follow-up in clinic. RICHY RIVERA MD Sep 01, 2016 9:12 am
[2016-09-01] MEDS ORDERED: FERR-74 PO (09:20)
[2016-09-01] MEDS ORDERED: IBUP-1773 PO (09:20)
[2016-09-01] MEDS ORDERED: HYDR-3874 PO (09:20)
[2016-09-01] MEDS ORDERED: D5 LR IV SOLUTION 1,000 ML IV SCH (10:15)
[2016-09-01] MEDS: CATHETER FLUSH 10 ML SYR IV SCH ×6 (10:45→22:17)
[2016-09-01] MEDS: D5 LR IV SOLUTION 1,000 ML IV SCH ×3 (10:46→23:00)
[2016-09-01] MEDS: cefTRIAXone INJECTION 1,000 MG in NS (IVPB) 50 ML IV SCH ×2 (10:46→22:17)
[2016-09-01 11:35] LABS: BILIRUBIN,URINE NEGATIVE (NEGATIVE); KETONES,URINE NEGATIVE (NEGATIVE); LEUKOCYTE ESTERASE ,URINE 1+ (NEGATIVE); NITRITE,URINE NEGATIVE (NEGATIVE); PH,URINE 6 (5-9); PROTEIN,URINE 1+ (NEGATIVE); UROBILINOGEN,URINE NORMAL (NORMAL)
[2016-09-01 11:54] LABS: SQUAMOUS EPITHELIAL CELL,UR RARE /HPF
[2016-09-01] MEDS: LEVOFLOXACIN 500 MG/100 ML IV 100 ML IV SCH (12:25)
[2016-09-01] MEDS ORDERED: PHENAZOPYRIDINE 100 MG (PYRIDIUM) TABLET PO ONE (13:00)
[2016-09-01 15:03] LABS: BASOPHILS # (AUTO) 0.1 10^3/uL (0.0-0.1); BASOPHILS % (AUTO) 0 % (0-10); EOSINOPHILS # (AUTO) 0.1 10^3/uL (0.0-0.3); EOSINOPHILS % (AUTO) 1 % (0-10); LYMPHOCYTES # (AUTO) 2.6 X 10^3 (1.0-4.0); LYMPHOCYTES % (AUTO) 18 % (12-44); MEAN CORPUSCULAR HEMOGLOBIN 28 PG (25-34); MEAN CORPUSCULAR HGB CONC 34 G/DL (32-36); MEAN CORPUSCULAR VOLUME 84 FL (80-99); MEAN PLATELET VOLUME 11.6 FL (7.4-10.4); MONOCYTES # (AUTO) 0.8 X 10^3 (0.0-1.0); MONOCYTES % (AUTO) 6 % (0-12); NEUTROPHILS # (AUTO) 10.7 X 10^3 (1.8-7.8); NEUTROPHILS % (AUTO) 75 % (42-75); PLATELET COUNT 239 10^3/uL (130-400); RED BLOOD COUNT 3.21 10^6/uL (4.35-5.85); RED CELL DISTRIBUTION WIDTH 13.3 % (10.0-14.5); WHITE BLOOD COUNT 14.3 10^3/uL (4.3-11.0)
[2016-09-01] MEDS ORDERED: TETANUS,DIPTH,PERTUSS P/F (BOOSTRIX) 0.5 ML VIAL IM ONE (17:08)
[2016-09-01 19:35] VITALS: BP 134/78
[2016-09-01] MEDS ORDERED: BETHANECHOL 25 MG (URECHOLINE) TAB PO ONE (21:00)
[2016-09-01] MEDS: PHENAZOPYRIDINE 100 MG (PYRIDIUM) TABLET PO SCH (21:21)
[2016-09-01] MEDS: BETHANECHOL 25 MG (URECHOLINE) TAB PO SCH (21:21)
[2016-09-02 02:56] VITALS: BP 131/70
[2016-09-02] MEDS: IBUPROFEN 600 MG (MOTRIN) TAB PO SCH ×2 (02:56→10:34)
--- NOTE | 2016-09-02 09:29 | Progress Note-Standard ---
Standard Progress Note Progress Notes/Assess & Plan Date Seen by Provider: Sep 02, 2016 Time Seen by Provider: 09:20 Progress/Assessment & Plan Patient discharged yesterday by Dr. Murphy but had complaint of retention and straight cath with 600 ml. Micro returned and Citrobacter and enterococcus. He had switched from Rocephin to Levaquin. However, Enterococcus not sans to the Levaquin and Citrobacter not Sens to Levaquin. Will give an add'l dose of rocephin today and send home with nitrofurantoin. Placed Khan yesterday and out today. No void yet. Will Give rocephin and levaquin today and if voids will dc home. On Bethanachol and will send home with this. Microbiology 09/01/16 Urine Culture - Preliminary, Resulted NO GROWTH Above was after antibiotics started. Laboratory Tests Test 09/01/16 10:45 09/01/16 14:57 Range/Units Urine Color YELLOW Urine Clarity CLEAR Urine pH 6 5-9 Urine Specific Marilla 1.015 L 1.016-1.022 Urine Protein 1+ H NEGATIVE Urine Glucose (UA) NEGATIVE NEGATIVE Urine Ketones NEGATIVE NEGATIVE Urine Nitrite NEGATIVE NEGATIVE Urine Bilirubin NEGATIVE NEGATIVE Urine Urobilinogen NORMAL NORMAL MG/DL Urine Leukocyte Esterase 1+ H NEGATIVE Urine RBC (Auto) 1+ H NEGATIVE Urine RBC 0-2 /HPF Urine WBC 5-10 H /HPF Urine Squamous Epithelial Cells RARE /HPF Urine Crystals NONE /LPF Urine Bacteria NEGATIVE /HPF Urine Casts NONE /LPF Urine Mucus NEGATIVE /LPF Urine Culture Indicated YES White Blood Count 14.3 H 4.3-11.0 10^3/uL Red Blood Count 3.21 L 4.35-5.85 10^6/uL Hemoglobin 9.0 L 11.5-16.0 G/DL Hematocrit 27 L 35-52 % Mean Corpuscular Volume 84 80-99 FL Mean Corpuscular Hemoglobin 28 25-34 PG Mean Corpuscular Hemoglobin Concent 34 32-36 G/DL Red Cell Distribution Width 13.3 10.0-14.5 % Platelet Count 239 130-400 10^3/uL Mean Platelet Volume 11.6 H 7.4-10.4 FL Neutrophils (%) (Auto) 75 42-75 % Lymphocytes (%) (Auto) 18 12-44 % Monocytes (%) (Auto) 6 0-12 % Eosinophils (%) (Auto) 1 0-10 % Basophils (%) (Auto) 0 0-10 % Neutrophils # (Auto) 10.7 H 1.8-7.8 X 10^3 Lymphocytes # (Auto) 2.6 1.0-4.0 X 10^3 Monocytes # (Auto) 0.8 0.0-1.0 X 10^3 Eosinophils # (Auto) 0.1 0.0-0.3 10^3/uL Basophils # (Auto) 0.1 0.0-0.1 10^3/uL day 3 s/p UTI causing leukocytosis, tachycardia, urinary retention all improving Plan dc home Anemia on iron YAJAIRA MONGE DO Sep 02, 2016 09:29
[2016-09-02] MEDS ORDERED: NITR100C PO (09:33)
[2016-09-02] MEDS ORDERED: PHEN-826 PO (09:40)
[2016-09-02] MEDS ORDERED: BETH25TA PO (09:40)
--- NOTE | 2016-09-02 09:47 | Discharge Summary ---
Diagnosis/Chief Complaint Date of Admission Aug 29, 2016 at 20:00 Date of Discharge Discharge Date: Sep 02, 2016 Admission Diagnosis Admission Diagnosis gestational hypertension 39 week pregnane Discharge Diagnosis \ urinary retention UTI vaginal delivery epidural acute blood loss anemia Discharge Summary Hospital Course Hospital Course Patient had cervical ripening and then ROm and pitocin with subsequent vaginal delivery. She was admitted for gestational hypertension but did not require BP treatment in labor, though BP were labile. She had close monitoring of the post BP which remained labile. she was discharged to home but after discharge, felt the urge to urinate with retention. A straight cath was done with large residual. She had previous UTI diagnosed and was on antibiotics. Was continued on antibiotics and dc was held. She was then discharged the next day without difficulty voiding after starint ureocholine. Was continued on po antibiotics to send home. From 08/17& Patient discharged yesterday (09/01) by Dr. Murphy but had complaint of retention and straight cath with 600 ml. Micro returned and Citrobacter and enterococcus. He had switched from Rocephin to Levaquin. However, Enterococcus not sans to the Levaquin and Citrobacter not Sens to Levaquin. Will give an add'l dose of rocephin today and send home with nitrofurantoin. Placed Khan yesterday and out today. No void yet. Will Give rocephin and levaquin today and if voids will dc home. On Bethanachol and will send home with this. Labs micro - citrobacter and enterococcus UTI [facility] labs wnl pp hgb 9.0 Procedures None. Discharge Physical Examination Allergies: Coded Allergies: Sulfa (Sulfonamide Antibiotics) (Verified Allergy, Unknown, RASH, 08/23/15) shellfish derived (Verified Allergy, Unknown, RASH, 08/23/15) hydrocodone (Verified Adverse Reaction, Mild, NAUSEA, 08/29/15) Vitals & I&Os see RN noted BP at dc 144/93 General Appearance: Alert, Oriented X3 Respiratory: Clear to Auscultation, Normal Air Movement Cardiovascular: Regular Rate Discussion & Recommendations ee above Discharge Home Medications Reviewed and agree with Discharge Medication list on patient's Discharge Instruction sheet Instructions to Patient/Family Please see electonic discharge instructions given to patient. Clinical Quality Measures DVT/VTE Risk/Contraindication: Risk Factor Score Per Nursin RFS Level Per Nursing on Admit: 3=High YAJAIRA MONGE DO Sep 02, 2016 09:46
[2016-09-02 10:30] VITALS: BP 144/93
[2016-09-02] MEDS: MAGNESIUM OXIDE (MAG-OX)400 MG TAB PO SCH (10:31)
[2016-09-02] MEDS: PHENAZOPYRIDINE 100 MG (PYRIDIUM) TABLET PO SCH (10:31)
[2016-09-02] MEDS: DOCUSATE SODIUM 100 MG (COLACE) CAP PO SCH (10:31)
[2016-09-02] MEDS: FERROUS SULF 325 MG (IRON) TAB PO SCH (10:31)
[2016-09-02] MEDS: PRENATAL VITAMIN 1 EA TAB PO SCH (10:31)
[2016-09-02] MEDS: BETHANECHOL 25 MG (URECHOLINE) TAB PO SCH (10:32)
[2016-09-02] MEDS ORDERED: cefTRIAXone INJECTION 1,000 MG in NS (IVPB) 50 ML IV NR (10:45)
[2016-09-02] MEDS: CATHETER FLUSH 10 ML SYR IV SCH (11:05)
[2016-09-02] MEDS: LEVOFLOXACIN 500 MG/100 ML IV 100 ML IV SCH (11:34)
== END 2016-09-02 13:15 | disposition home or self-care (01) | DRG 775 ==
LOC: LDRP 20:00
PROVIDERS: ADMIT Obstetrics & Gynecology; ATTEND Obstetrics & Gynecology
PROC: 10E0XZZ Delivery of Products of Conception, External Approach (ICD-10-PCS; principal; 2016-08-30)
PROC: 0KQM0ZZ Repair Perineum Muscle, Open Approach (ICD-10-PCS; 2016-08-30)
DX: O12.13 Gestational proteinuria, third trimester (principal); O70.1 Second degree perineal laceration during delivery; O86.20 Urinary tract infection following delivery, unspecified; O69.81X0 Labor and delivery complicated by cord around neck, without compression, not applicable or unspecified; B95.2 Enterococcus as the cause of diseases classified elsewhere; O99.03 Anemia complicating the puerperium; D64.9 Anemia, unspecified; Z3A.39 39 weeks gestation of pregnancy; Z37.0 Single live birth; Z23 Encounter for immunization
CPT/HCPCS: 36415; 80053; 81000; 83615; 83735; 84550; 85007; 85025; 85027; 86850; 86900; 86901; 87077; 87088; 87186; 90715

== ENCOUNTER → 2016-10-17 | Outpatient (CLI) | payer BC, OTHER ==
[~2016-10-17] MED LIST changes: +BETH25TA PO; +CEPH-507 PO; +FERR-74 PO; +HYDR-3812 PO; +HYDR-3874 PO; +MAGN250T2 PO; +NITR100C PO; +OMEP20TA33 PO; +PHEN-826 PO; +PREN-142 PO
[2016-10-17 08:48] LABS: ALANINE AMINOTRANSFERASE 19 U/L (0-55); ANION GAP 7 MMOL/L (5-14); ASPARTATE AMINO TRANSFERASE 17 U/L (5-34); BLOOD UREA NITROGEN 10 MG/DL (7-18); BUN/CREATININE RATIO 14; CALCIUM 9.1 MG/DL (8.5-10.1); CARBON DIOXIDE 26 MMOL/L (21-32); CHLORIDE 107 MMOL/L (98-107); CHOLESTEROL 237 MG/DL (< 200); CREATININE SERUM 0.73 MG/DL (0.60-1.30); DIRECT LDL 213 MG/DL (1-129); GFR ESTIMATED > 60; GLUCOSE 93 MG/DL (70-105); POTASSIUM 4.4 MMOL/L (3.6-5.0); SODIUM 140 MMOL/L (135-145); TOTAL PROTEIN 6.9 GM/DL (6.4-8.2); TRIGLYCERIDES 170 MG/DL (<150); VLDL CHOLESTEROL 34 MG/DL (5-40)
== END ==
LOC: LAB 07:50
PROVIDERS: ATTEND Obstetrics & Gynecology
DX: E78.5 Hyperlipidemia, unspecified (principal)
CPT/HCPCS: 36415; 80053; 80061

== ENCOUNTER → 2016-11-18 | Outpatient (CLI) | payer BC | LOC: CARD 13:46 | PROVIDERS: ATTEND Obstetrics & Gynecology | DX: R00.0 Tachycardia, unspecified (principal); R00.2 Palpitations | CPT/HCPCS: 93225; 93226 ==

== ENCOUNTER 2022-08-16 02:58 | Emergency (ER) | payer BC ==
[~2022-08-16] VITALS: Ht 162.6 cm; Wt 104.0 kg
[~2022-08-16 02:58] MED LIST changes: +ACHD5005 PO; -BETH25TA PO; +BETH25TA2 PO; +CYCL10TA25 PO; -CYCL10TA9 PO; -FERR-74 PO; +FERR325T18 PO; -HYDR-3812 PO; +HYDR-3870 PO; -HYDR-3874 PO; -MAGN250T2 PO; +MAGN250T31 PO; -OXYC-471 PO; +OXYC1TAB11 PO
[2022-08-16 03:15] VITALS: BP 136/87
[2022-08-16] MEDS ORDERED: ONDANSETRON 4 MG/2 ML (SDV) Z0FRAN IVP ONE (03:30)
[2022-08-16] MEDS ORDERED: SCOPOLAMINE 1.5 MG (TRANSDERM-SCOP) PATCH TD ONE (03:30)
[2022-08-16] MEDS ORDERED: LACTATED RINGERS 1,000 ML IV ONE (03:30)
[2022-08-16 04:05] LABS: BASOPHILS # (AUTO) 0.1 10^3/uL (0.0-0.1); BASOPHILS % (AUTO) 1 % (0-10); EOSINOPHILS % (AUTO) 0 % (0-10); HEMATOCRIT 41 % (35-52); HEMOGLOBIN 14.3 g/dL (11.5-16.0); LYMPHOCYTES # (AUTO) 1.6 10^3/uL (1.0-4.0); LYMPHOCYTES % (AUTO) 12 % (12-44); MEAN CORPUSCULAR HEMOGLOBIN 29 pg (25-34); MEAN CORPUSCULAR HGB CONC 35 g/dL (32-36); MEAN CORPUSCULAR VOLUME 82 fL (80-99); MONOCYTES # (AUTO) 0.6 10^3/uL (0.0-1.0); MONOCYTES % (AUTO) 4 % (0-12); NEUTROPHILS # (AUTO) 10.9 10^3/uL (1.8-7.8); NEUTROPHILS % (AUTO) 83 % (42-75); PLATELET COUNT 302 10^3/uL (130-400); WHITE BLOOD COUNT 13.2 10^3/uL (4.3-11.0)
--- NOTE | 2022-08-16 04:06 | ED General ---
General Chief Complaint: Neurological Problems Stated Complaint: ABD PAIN Nursing Triage Note: Pt presents with c/o vertigo that started at approx 2200 last night. She states she also has neck pain and RUQ abdominal pain with onset. Pt states she was laying in bed in a position that eased her symptoms, she states she rolled her neck and became nauseated and started vomiting. Pt reports pain in RUQ comes and goes, it is also positional. Source of Information: Patient History of Present Illness Date Seen by Provider: Aug 16, 2022 Time Seen by Provider: 03:24 Initial Comments PT ARRIVES VIA POV FROM HOME PT HAD A SUDDEN ONSET OF SEVERE DIZZINESS AT 2200 TONIGHT, WHILE SITTING IN BED. SHE TURNED HER HEAD/NECK AND BEGAN TO HAVE SUDDEN DIZZINESS AND SEVERE NAUSEA AND DRY HEAVES.SHE HAS VOMITED ONCE STATES SHE HAS "WAVES OF PAIN IN BACK OF MY NECK THAT THEN RADIATES THROUGH MY WHOLE BODY DOWN TO MY STOMACH AND EVERY THING TENSES UP AND MY ABDOMEN TENSES UP AND IT IS LIKE A HERNANDEZ OF HEAT THROUGH MY WHOLE BODY INTO MY ABDOMEN" SHE HAS NOT HAD A HEADACHE AT THIS TIME SHE IS NOT HAVING ANY NECK OR ABDOMINAL PAIN OR PAIN ANYWHERE AT THIS TIME. NO PARESTHESIAS OR MOTOR DEFICITS NO VISION CHANGES NO FEVER OR RECENT ILLNESS NO UNUSUAL ACTIVITY, AND WAS NOT OUT IN THE HEAT TODAY--WORKS IN AN OFFICE ALL DAY--AT [employer]. DIZZINESS IS MUCH WORSE WITH ANY HEAD MOVEMENT OR OPENING HER EYES, AND IS A SPINNING SENSATION PT INITIALLY STATES THAT SHE HAS NEVER HAD THIS BEFORE. LATER, WHEN SHE IS FEELING BETTER, SHE NOW STATES THAT SHE HAS HAD THIS SAME VERTIGO WITH HER MIGRAINES AND TURNING HER HEAD. PCP: [facility] Allergies and Home Medications Allergies Coded Allergies: Sulfa (Sulfonamide Antibiotics) (Verified Allergy, Unknown, RASH, 08/23/15) shellfish derived (Verified Allergy, Unknown, RASH, 08/23/15) hydrocodone (Verified Adverse Reaction, Mild, NAUSEA, 08/29/15) Patient Home Medication List Home Medication List Reviewed: Yes Bethanechol Chloride (Bethanechol Chloride) 25 Mg Tablet, 25 MG PO QID Prescribed by: YAJAIRA MONGE on 09/02/16 0940 Ferrous Sulfate (Ferrous Sulfate) 325 Mg Tablet, 325 MG PO DAILY Prescribed by: RICHY ALARCON on 09/01/16 0920 Hydrocodone/Acetaminophen (Lorcet 5-325 mg Tablet) 1 Each Tablet, 1-2 EACH PO Q4H PRN for PAIN Prescribed by: RICHY ALARCON on 09/01/16919 Ibuprofen (Ibuprofen) 600 Mg Tablet, 600 MG PO Q6H Prescribed by: RICHY ALARCON on 09/01/16919 Ketorolac Tromethamine (Ketorolac Tromethamine) 10 Mg Tablet, 10 MG PO Q6H Prescribed by: WILFREDO HERNANDEZ on 08/16/22 0513 Loratadine (Claritin) 10 Mg Tablet, 10 MG PO HS, (Reported) Entered as Reported by: HAI JOHNSON on 08/23/15 124 Magnesium (Magnesium) 250 Mg Tablet, 250 MG PO DAILY, (Reported) Entered as Reported by: RUBÉN CHIANG on 08/29/162238 Meclizine HCl (Meclizine HCl) 25 Mg Tablet, 50 MG PO Q6 PRN for DIZZINESS Prescribed by: WILFREDO HERNANDEZ on 08/16/22 050 Nitrofurantoin Macrocrystal (Nitrofurantoin) 100 Mg Capsule, 100 MG PO BID Prescribed by: YAJAIRA MONGE on 09/02/16 0933 Nitrofurantoin Monohyd/M-Cryst (Macrobid 100 mg Capsule) 100 Mg Capsule, 1 TAB PO BID Prescribed by: WILFREDO HERNANDEZ on 08/16/22 050 Omeprazole Magnesium (Prilosec Otc) 20 Mg Tablet.dr, 20 MG PO DAILY, (Reported) Entered as Reported by: RUBÉN CHIANG on 08/29/162238 Ondansetron (Ondansetron Odt) 8 Mg Tab.rapdis, 8 MG PO Q6H Prescribed by: WILFREDO HERNANDEZ on 08/16/22 050 Phenazopyridine HCl (Phenazopyridine HCl) 100 Mg Tablet, 200 MG PO TID Prescribed by: YAJAIRA MONGE on 09/02/16 09 Vit No.124/Iron/FA ( Vitamin Tablet) 1 Each Tablet, 1 EACH PO DAILY, (Reported) Entered as Reported by: RUBÉN CHIANG on 08/29/162238 Scopolamine (Transderm-Scop) 1 Mg/3 Day Patch.td72, 1 EACH TD Q72H Prescribed by: WILFREDO HERNANDEZ on 08/16/22 0508 Review of Systems Review of Systems Constitutional: see HPI; No diaphoresis; dizziness EENTM: no symptoms reported Respiratory: no symptoms reported Cardiovascular: no symptoms reported Gastrointestinal: see HPI, abdominal pain, nausea, vomiting Genitourinary: no symptoms reported Musculoskeletal: see HPI Skin: no symptoms reported Psychiatric/Neurological: See HPI Hematologic/Lymphatic: No Symptoms Reported Immunological/Allergic: no symptoms reported Past Nvbdrty-Hrsbff-Mzqecj Hx Patient Social History Tobacco Use?: No Substance use?: No Alcohol Use?: No Seasonal Allergies Seasonal Allergies: Yes Past Medical History Surgeries: Yes (wisdom teeth; RIGHT OVARIAN DERMOID CYST REMOVAL 08/2015) Respiratory: No Cardiac: No Neurological: Yes Headaches /Migraines, Vertigo Reproductive Disorders: Yes Female Reproductive Disorders: Ovarian Cyst, Polycystic Ovarian Dis Genitourinary: No Gastrointestinal: Yes (elevated bilirubin r/t liver) Musculoskeletal: Yes Arthritis Endocrine: No HEENT: No Cancer: No Psychosocial: No Integumentary: No Blood Disorders: No Family Medical History Cardiovascular disease 19 FATHER Completed stroke GRANDMOTHER, PATERNAL FH: hyperlipidemia 19 FATHER GRANDFATHER, PATERNAL Hypertension 19 FATHER GRANDFATHER, PATERNAL Physical Exam Vital Signs Vital Signs - First Documented 08/16/22 03:15 Temp 35.7 Pulse 89 Resp 18 B/P (MAP) 136/87 (103) Capillary Refill : Less Than 3 Seconds Height, Weight, BMI Height: 5'4.00" Weight: 256lbs. 4.0oz. 116.874562md; 39.00 BMI Method: General Appearance: WD/WN, Anxious, Other (PT IS ANXIOUS, HYPERVENTILATING AND TREMULOUS. SHE WALKS IN ON HER OWN, HOLDING A TRASHCAN WITH A STEADY GAIT. SHE KEEPS HER EYES CLOSED AFTER SHE IS ABLE TO SIT ON ER CART. SHE THEN IS LEANING OVER A TRASH CAN. 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 SPEECH CLEAR AND GAIT IS STEADY. NO PROBLEMS WITH COORDINATION) Skin: Normal Color, Warm/Dry Progress/Results/Core Measures Suspected Sepsis SIRS Temperature: Pulse: 89 Respiratory Rate: 18 Laboratory Tests 08/16/22 03:50: White Blood Count 13.2H Blood Pressure 136 /87 Mean: 103 Laboratory Tests 08/16/22 03:50: Creatinine 0.83, Platelet Count 302, Total Bilirubin 1.4H Results/Orders Lab Results Laboratory Tests Test 08/16/22 03:40 08/16/22 03:50 08/16/22 04:19 Range/Units Urine Color YELLOW Urine Clarity CLEAR Urine pH 7.0 5-9 Urine Specific Rankin 1.010 L 1.016-1.022 Urine Protein TRACE H NEGATIVE Urine Glucose (UA) NEGATIVE NEGATIVE Urine Ketones NEGATIVE NEGATIVE Urine Nitrite NEGATIVE NEGATIVE Urine Bilirubin NEGATIVE NEGATIVE Urine Urobilinogen 0.2 < = 1.0 MG/DL Urine Leukocyte Esterase 1+ H NEGATIVE Urine RBC (Auto) NEGATIVE NEGATIVE Urine RBC NONE /HPF Urine WBC 10-25 H /HPF Urine Squamous Epithelial Cells 5-10 /HPF Urine Crystals NONE /LPF Urine Bacteria MODERATE H /HPF Urine Casts NONE /LPF Urine Mucus SMALL H /LPF Urine Culture Indicated YES Urine Opiates Screen NEGATIVE NEGATIVE Urine Oxycodone Screen NEGATIVE NEGATIVE Urine Methadone Screen NEGATIVE NEGATIVE Urine Propoxyphene Screen NEGATIVE NEGATIVE Urine Barbiturates Screen NEGATIVE NEGATIVE Ur Tricyclic Antidepressants Screen NEGATIVE NEGATIVE Urine Phencyclidine Screen NEGATIVE NEGATIVE Urine Amphetamines Screen NEGATIVE NEGATIVE Urine Methamphetamines Screen NEGATIVE NEGATIVE Urine Benzodiazepines Screen NEGATIVE NEGATIVE Urine Cocaine Screen NEGATIVE NEGATIVE Urine Cannabinoids Screen NEGATIVE NEGATIVE White Blood Count 13.2 H 4.3-11.0 10^3/uL Red Blood Count 4.94 3.80-5.11 10^6/uL Hemoglobin 14.3 11.5-16.0 g/dL Hematocrit 41 35-52 % Mean Corpuscular Volume 82 80-99 fL Mean Corpuscular Hemoglobin 29 25-34 pg Mean Corpuscular Hemoglobin Concent 35 32-36 g/dL Red Cell Distribution Width 11.3 10.0-14.5 % Platelet Count 302 130-400 10^3/uL Mean Platelet Volume 11.0 9.0-12.2 fL Immature Granulocyte % (Auto) 0 % Neutrophils (%) (Auto) 83 H 42-75 % Lymphocytes (%) (Auto) 12 12-44 % Monocytes (%) (Auto) 4 0-12 % Eosinophils (%) (Auto) 0 0-10 % Basophils (%) (Auto) 1 0-10 % Neutrophils # (Auto) 10.9 H 1.8-7.8 10^3/uL Lymphocytes # (Auto) 1.6 1.0-4.0 10^3/uL Monocytes # (Auto) 0.6 0.0-1.0 10^3/uL Eosinophils # (Auto) 0.0 0.0-0.3 10^3/uL Basophils # (Auto) 0.1 0.0-0.1 10^3/uL Immature Granulocyte # (Auto) 0.0 0.0-0.1 10^3/uL Sodium Level 136 135-145 MMOL/L Potassium Level 3.7 3.6-5.0 MMOL/L Chloride Level 106 98-107 MMOL/L Carbon Dioxide Level 18 L 21-32 MMOL/L Anion Gap 12 5-14 MMOL/L Blood Urea Nitrogen 12 7-18 MG/DL Creatinine 0.83 0.60-1.30 MG/DL Estimat Glomerular Filtration Rate 94 BUN/Creatinine Ratio 14 Glucose Level 142 H 70-105 MG/DL Calcium Level 9.2 8.5-10.1 MG/DL Corrected Calcium 9.0 8.5-10.1 MG/DL Magnesium Level 1.8 1.6-2.4 MG/DL Total Bilirubin 1.4 H 0.1-1.0 MG/DL Aspartate Amino Transf (AST/SGOT) 15 5-34 U/L Alanine Aminotransferase (ALT/SGPT) 19 0-55 U/L Alkaline Phosphatase 88 40-136 U/L Total Protein 7.3 6.4-8.2 GM/DL Albumin 4.3 3.2-4.5 GM/DL Amylase Level 22 L 25-125 U/L Lipase 11 8-78 U/L Serum Alcohol < 10 <10 MG/DL Urine Test NEGATIVE NEGATIVE My Orders Orders - WILFREDO HERNANDEZ DO Ed Iv/Invasive Line Start (08/16/22 03:26) Monitor-Rhythm Ecg Trace Only (08/16/22 03:26) Amylase (08/16/22 03:26) Cbc With Automated Diff (08/16/22 03:26) Comprehensive Metabolic Panel (08/16/22 03:26) Drug Screen Stat (Urine) (08/16/22 03:26) Lipase (08/16/22 03:26) Magnesium (08/16/22 03:26) Ua Culture If Indicated (08/16/22 03:26) Ed Iv/Invasive Line Start (08/16/22 03:26) Lactated Ringers (Lr 1000 Ml Iv Solution (08/16/22 03:30) Ondansetron Injection (Zofran Injectio (08/16/22 03:30) Scopolamine Patch (Transderm-Scop Patch) (08/16/22 03:30) Alcohol (08/16/22 03:26) Diazepam Injection (Valium Injection) (08/16/22 03:45) Ct Head/Cervical Spine Wo (08/16/22 03:34) Hcg,Qualitative Urine (08/16/22 04:19) Urine Culture (08/16/22 03:40) Ceftriaxone Iv/Im (Rocephin Iv/Im) (08/16/22 04:36) Ketorolac Injection (Toradol Injection) (08/16/22 05:00) Medications Given in ED Current Medications Medications Dose Ordered Sig/Abhi Route Start Time Stop Time Status Last Admin Dose Admin Diazepam 5 mg ONCE ONCE IVP 08/16/22 03:45 08/16/22 03:46 DC 08/16/22 04:06 5 MG Ketorolac Tromethamine 30 mg ONCE ONCE IVP 08/16/22 05:00 08/16/22 05:01 DC 08/16/22 05:01 30 MG Lactated Ringer's 1,000 ml @ 0 mls/hr Q0M ONCE IV 08/16/22 03:30 08/16/22 03:31 DC 08/16/22 04:06 0 MLS/HR Ondansetron HCl 4 mg ONCE ONCE IVP 08/16/22 03:30 08/16/22 03:31 DC 08/16/22 04:06 4 MG Scopolamine 1.5 mg ONCE ONCE TD 08/16/22 03:30 08/16/22 03:31 DC 08/16/22 04:06 1.5 MG Vital Signs/I&O 08/16/22 03:15 Temp 35.7 Pulse 89 Resp 18 B/P (MAP) 136/87 (103) Capillary Refill : Less Than 3 Seconds Blood Pressure Mean: 103 Progress Note : Progress Note LABS INCLUDING CBC, CMP, HCG, UA, ETOH, UDS ORDERED ALONG WITH CT SCAN GIVEN: -IV FLUIDS -ZOFRAN -SCOPOLAMINE -VALIUM -TORADOL -ROCEPHIN SIGNIFICANT AND DRAMATIC IMPROVEMENT WITH THE ABOVE MEDICATIONS NAUSEA AND DIZZINESS IS GONE, AND NO LONGER HAS NYSTAGMUS PT DID NOT HAVE ANY WORSENING OF SYMPTOMS WHILE GOING TO/FROM CT SCAN OR MOVING FROM ER CART TO CT SCANNER AND BACK. ON RETURN FROM CT, SHE STATES THAT SHE HAS A LITTLE SORENESS/ACHING IN LEFT OCCIPUT AND LEFT LATERAL NECK AREA. TORADOL ORDERED SHE LATER STATES THAT WHEN SHE DOES GET "MIGRAINES" SHE USUALLY JUST TRIES TO SLEEP IT OFF. SHE DOES HAVE A PRESCRIPTION FOR FLEXERIL THAT SHE HAS BEEN PRESCRIBED FOR HER "MIGRAINES" BECAUSE THEY ALWAYS CAUSE TIGHTNESS IN HER NECK MUSCLES, AND IT RELAXES HER AND HELPS HER SLEEP AND THEN HER HEADACHE IS BETTER WHEN SHE WAKES UP. SHE STATES SHE HAS "PLENTY" OF FLEXERIL AT HOME UA SHOWS EVIDENCE OF UTI WITH MODERATE BACTERIA, 10-25 WBC AND 1+ LEUKOCYTES ALL OTHER LABS ARE ESSENTIALLY NORMAL/UNREMARKABLE CT SCAN OF HEAD/NECK IS ESSENTIALLY NORMAL. VITALS STABLE NO DETERIORATION IN PT'S CONDITION DURING ER STAY. DISCUSSED TEST RESULTS, ANTICIPATED COURSE, SYMPTOMATIC TREATMENT, MEDICATIONS, NEED FOR FOLLOW UP AND RETURN PRECAUTIONS. REVIEWED PRIOR RECORDS--SINGLE OUTPATIENT SURGERY FOR OVARIAN CYST 2015, AND DELIVERY 2017. Diagnostic Imaging Comments CT SCAN HEAD/NECK--PER [facility] VIA FAX AT [id number] -NO ACUTE INTRACRANIAL ABNORMALITY -STRAIGHTENING OF CERVICAL SPINE LORDOSIS WHICH MAY BE SECONDARY TO POSITIONING VS MUSCULAR SPASM -NO ACUTE FINDINGS OF CERVICAL SPINE. Reviewed: Reviewed by Me Departure Impression Primary Impression: Vertigo Additional Impressions: UTI (urinary tract infection) Hx of migraines Disposition: HOME, SELF-CARE Condition: Improved Departure-Patient Inst. Decision time for Depature: 05:00 Referrals: [facility] (PCP/Family) Primary Care Physician Patient Instructions: Vertigo (a Type of Dizziness) (DC), Urinary Tract Infec tion, Adult ED, Migraines (DC) Add. Discharge Instructions: HOME, REST SLOW POSITION CHANGES, AND AVOID SUDDEN HEAD MOVEMENTS LOTS OF CLEAR LIQUIDS--NO COFFEE, POP OR TEA LEAVE SCOPOLAMINE PATCH IN PLACE FOR 3 DAYS. YOU MAY TAKE YOUR FLEXERIL NEEDED FOR MUSCLE TIGHTNESS/SPASMS FOLLOW UP WITH YOUR DR ON FRIDAY FOR RECHECK, RETURN TO ER IF SYMPTOMS WORSEN All discharge instructions reviewed with patient and/or family. Voiced understanding. Scripts Ketorolac Tromethamine (Ketorolac Tromethamine) 10 Mg Tablet 10 MG PO Q6H for Pain, #15 TAB Prov: WILFREDO HERNANDEZ DO 08/16/22 Nitrofurantoin Monohyd/M-Cryst (Macrobid 100 mg Capsule) 100 Mg Capsule 1 TAB PO BID, #20 CAP Prov: WILFREDO HERNANDEZ DO 08/16/22 Ondansetron (Ondansetron Odt) 8 Mg Tab.rapdis 8 MG PO Q6H, #10 TAB Prov: WILFREDO HERNANDEZ DO 08/16/22 Meclizine HCl (Meclizine HCl) 25 Mg Tablet 50 MG PO Q6 PRN for DIZZINESS, #16 TAB Prov: WILFREDO HERNANDEZ DO 08/16/22 Scopolamine (Transderm-Scop) 1 Mg/3 Day Patch.td72 1 EACH TD Q72H, #3 PATCH Prov: WILFREDO HERNANDEZ DO 08/16/22 WILFREDO HERNANDEZ DO Aug 16, 2022 04:06
[2022-08-16 04:15] LABS: ALBUMIN 4.3 GM/DL (3.2-4.5); CHLORIDE 106 MMOL/L (98-107); POTASSIUM 3.7 MMOL/L (3.6-5.0); SODIUM 136 MMOL/L (135-145)
[2022-08-16 04:16] LABS: AMYLASE 22 U/L (25-125); CALCIUM 9.2 MG/DL (8.5-10.1)
[2022-08-16 04:17] LABS: BILIRUBIN,URINE NEGATIVE (NEGATIVE); CLARITY,URINE CLEAR; COLOR,URINE YELLOW; GLUCOSE, URINE (UA) NEGATIVE (NEGATIVE); KETONES,URINE NEGATIVE (NEGATIVE); LEUKOCYTE ESTERASE ,URINE 1+ (NEGATIVE); NITRITE,URINE NEGATIVE (NEGATIVE); PROTEIN,URINE TRACE (NEGATIVE)
[2022-08-16 04:17] LABS: GLUCOSE 142 MG/DL (70-105)
[2022-08-16 04:18] LABS: CARBON DIOXIDE 18 MMOL/L (21-32); TOTAL PROTEIN 7.3 GM/DL (6.4-8.2)
[2022-08-16 04:19] LABS: BILIRUBIN,TOTAL 1.4 MG/DL (0.1-1.0)
[2022-08-16 04:21] LABS: ALKALINE PHOSPHATASE 88 U/L (40-136); CREATININE SERUM 0.83 MG/DL (0.60-1.30); GFR ESTIMATED 94
[2022-08-16 04:22] LABS: BUN/CREATININE RATIO 14
[2022-08-16 04:22] LABS: AMPHETAMINE SCREEN, URINE NEGATIVE (NEGATIVE); BARBITURATE SCREEN URINE NEGATIVE (NEGATIVE); BENZODIAZEPINES SCREEN URINE NEGATIVE (NEGATIVE); CANNABINOID SCREEN, URINE NEGATIVE (NEGATIVE); COCAINE SCREEN URINE NEGATIVE (NEGATIVE); METHADONE STAT NEGATIVE (NEGATIVE); OPIATE SCREEN URINE NEGATIVE (NEGATIVE); OXYCODONE STAT NEGATIVE (NEGATIVE); PROPOXYPHENE STAT NEGATIVE (NEGATIVE); TRICYCLIC ANTIDEPRESSANTS SCRE NEGATIVE (NEGATIVE)
[2022-08-16 04:23] LABS: BACTERIA,URINE MODERATE /HPF
[2022-08-16 04:24] LABS: ALANINE AMINOTRANSFERASE 19 U/L (0-55); MAGNESIUM 1.8 MG/DL (1.6-2.4)
[2022-08-16 04:25] LABS: LIPASE 11 U/L (8-78)
[2022-08-16] MEDS ORDERED: cefTRIAXone IV/IM 1,000 MG in NS (IVPB) 50 ML IV STA (04:36)
[2022-08-16] MEDS ORDERED: KETOROLAC 30 MG/ML VIAL IVP ONE (05:00)
[2022-08-16] MEDS ORDERED: SCOP1PAT10 TD (05:08)
[2022-08-16] MEDS ORDERED: MECL-149 PO (05:08)
[2022-08-16] MEDS ORDERED: NITR-65 PO (05:08)
[2022-08-16] MEDS ORDERED: ONDA8TAB13 PO (05:08)
[2022-08-16] MEDS ORDERED: KETO10TA PO (05:13)
--- NOTE | 2022-08-16 06:08 | Diagnostic Imaging Report ---
PROCEDURE: CT head and CT cervical spine without contrast. TECHNIQUE: Multiple contiguous axial images were obtained through the brain and cervical spine without the use of intravenous contrast. Sagittal and coronal reformations through the cervical spine were then performed. Auto Exposure Controls were utilized during the CT exam to meet ALARA standards for radiation dose reduction. INDICATION: Trauma COMPARISON: None available. FINDINGS: Head: No hyperdense hemorrhage or space-occupying mass. No hydrocephalus or midline shift. No evidence of territorial infarct. Basilar cisterns are patent. No focal scalp swelling. No skull fracture. The paranasal sinuses and mastoid air cells are clear. Cervical spine: No acute fracture or traumatic malalignment. No high-grade spinal canal narrowing. Airway is patent. No cervical lymphadenopathy. Visualized thyroid is normal. IMPRESSION: 1. No acute intracranial process or skull fracture. 2. No acute fracture or traumatic malalignment of the cervical spine. 3. Findings are in agreement with the preliminary report. Dictated by: Dictated on workstation # [id number]
== END 2022-08-16 06:06 | disposition home or self-care (01) ==
LOC: EDUNIT# 02:58 → ER 03:03
DX: R42 Dizziness and giddiness (principal); N39.0 Urinary tract infection, site not specified; R11.2 Nausea with vomiting, unspecified; F41.9 Anxiety disorder, unspecified; M54.2 Cervicalgia; Z86.69 Personal history of other diseases of the nervous system and sense organs; Z88.2 Allergy status to sulfonamides; Z28.310 Unvaccinated for COVID-19
CPT/HCPCS: 70450; 72125; 80053; 80306; 81000; 82150; 83690; 83735; 84703; 85025; 87088; 93041; 99284; G0480; 36415; 80320